=== PATIENT | male | born 1955 | race Caucasian/White ===

== ENCOUNTER → 2021-04-29 | Outpatient (CLI) | payer OTHER | END | disposition home or self-care (01) | LOC: PETCFH 09:38 | PROVIDERS: ATTEND Internal Medicine Pulmonary Disease | DX: C34.31 Malignant neoplasm of lower lobe, right bronchus or lung (principal); R59.0 Localized enlarged lymph nodes; J98.11 Atelectasis; J43.9 Emphysema, unspecified; M47.816 Spondylosis without myelopathy or radiculopathy, lumbar region; N20.0 Calculus of kidney | CPT/HCPCS: 78815; A9552 ==